=== PATIENT | female | born 1965 | race Caucasian/White ===

== ENCOUNTER 2021-04-19 17:03 | Emergency (ER) | payer MEDICARE, OTHER ==
[2021-04-19 18:36] LABS: HEMOGLOBIN 14.1 gm/dl (12.3-15.3); RED BLOOD COUNT 4.54 M/UL (4.00-5.10); WHITE BLOOD COUNT 9.1 K/UL (4.5-11.0)
[2021-04-19 18:52] LABS: BUN/CREATININE RATIO 20 (0-10)
[2021-04-20] MEDS ORDERED: PHENERGAN 25 MG25 M1 PO (00:02)
[2021-04-20] MEDS ORDERED: PROTONIX40 MG PO (00:02)
[2021-04-20] MEDS ORDERED: CEPHALEXIN500 M1 PO (00:02)
[2021-04-20] MEDS ORDERED: ONDANSETRON ODT4 MG SL (00:02)
== END 2021-04-20 00:10 | disposition home or self-care (01) ==
LOC: ER1 17:03
PROVIDERS: Family Medicine
DX: N39.0 Urinary tract infection, site not specified (principal); R10.13 Epigastric pain; R68.83 Chills (without fever); F17.200 Nicotine dependence, unspecified, uncomplicated; K21.9 Gastro-esophageal reflux disease without esophagitis; Z90.49 Acquired absence of other specified parts of digestive tract; Z90.710 Acquired absence of both cervix and uterus; Z79.899 Other long term (current) drug therapy; Z20.822 Contact with and (suspected) exposure to COVID-19
CPT/HCPCS: 71045; 80053; 81001; 82150; 83690; 85025; 96374; 96375; 99284; J2270; J2405; J2550; Q9967; U0002